=== PATIENT | female | born 1990 | race Caucasian/White ===

== ENCOUNTER 2020-02-18 08:10 | Day surgery (SDC) | payer MEDICAID ==
[~2020-02-18] VITALS: Ht 170.2 cm; Wt 92.3 kg
--- NOTE | ~2020-02-18 | OP ---
PATIENT NAME: SUDHA COLLAZO MEDICAL RECORD: [id number] :90 LOCATION:[facility] ADMISSION DATE: SURGEON: LYDIA CORREA DO DATE OF OPERATION: 02/18/2020 PROCEDURE: EGD with balloon dilation and biopsies. INDICATIONS FOR PROCEDURE: Dysphagia and heartburn. SCOPE: Olympus video gastroscope. MEDICATIONS: Propofol 400 mg IV per anesthesia. ESTIMATED BLOOD LOSS: Minimal. COMPLICATIONS: None. FINDINGS: Informed consent was given. The patient was made comfortable with the above medication. After reaching an adequate level of sedation by slow IV push, the patient was placed on her left side. The endoscope was advanced under direct visualization through the mouth to the second portion of the duodenum with ease. The upper, middle, and lower thirds of the esophagus appeared normal. Cold forceps biopsies were taken from the midesophagus to rule out the presence of eosinophils. At the GE junction, there were minor changes consistent with LA class A reflux-induced esophagitis and mild esophageal stenosis. A CRE dilating balloon was placed through the endoscope and the GE junction was dilated to 20 mm maximum diameter successfully. The endoscope was advanced beyond the GE junction into the stomach and retroflexed to view the cardia and fundus, which appeared normal. The body of the stomach also appeared normal. In the antrum and prepyloric regions, there were minor changes of erythema and granularity consistent with chronic mild gastritis. Cold forceps, biopsies were taken from the antrum and incisura to submit for histopathology and to rule out the presence of H. pylori. The endoscope was advanced beyond the pylorus into the duodenum, which appeared normal to the second portion. The endoscope was then withdrawn from the patient. The patient tolerated the procedure well and there were no complications. IMPRESSION: 1. LA class A reflux-induced esophagitis. 2. Mild esophageal stenosis, status post dilation to 20 mm. 3. Mild chronic gastritis involving the antrum. PLAN AND RECOMMENDATIONS: 1. Discharge home when recovery parameters are met. 2. Follow up biopsy specimen results. 3. GERD diet and reflux precautions. 4. Continue current medications. 5. Omeprazole 40 mg daily times 60 days. 6. Follow up in GI clinic in 4-6 weeks. 7. If dysphagia persist after dilation and while on medications, consider esophageal manometry to rule out dysmotility. TRANSINT:[id number] Voice Confirmation ID: [id number] DOCUMENT ID: [id number] OPERATIVE REPORT [id number] SUDHA COLLAZO NATHAN A DO CC: [id number] DICTATION DATE: 02/18/201104 PYRIDINE OPERATOR: 02/18/20 1200 REG [facility] [address] [id number]
[2020-02-18 08:29] LABS: HEMATOCRIT 40.5 % (36.0-48.0); HEMOGLOBIN 13.1 g/dL (12-16); MCH 28.8 pg (26.0-34.0); MCHC 32.3 g/dL (31.0-37.0); MEAN PLATELET VOLUME 10.2 fL (7.4-10.4); RBC 4.55 10x6/uL (4.00-5.40); RDW 13.5 % (11.5-14.5); WBC 7.7 10x3/uL (4.8-10.8)
[2020-02-18 08:34] LABS: CALC OSMOLALITY 278 mosm/kg (275-300); CALCIUM 9.5 mg/dL (8.5-10.1); CARBON DIOXIDE 25.3 mmol/L (21.0-32.0); CHLORIDE - SERUM 103 mmol/L (98-107); CREATININE - SERUM 0.7 mg/dL (0.6-1.3); GLUCOSE 213 mg/dL (74-106); SODIUM 137 mmol/L (136-145); UREA NITROGEN 11 mg/dL (7-18); eGFR NON AFRICAN AMERICAN > 90 mL/min (90-120)
[2020-02-18 08:48] LABS: HCG SERUM NEGATIVE (NEGATIVE)
[2020-02-18] MEDS ORDERED: LIPITOR10 MG PO (09:05)
[2020-02-18] MEDS ORDERED: GLUCOPHAGE500 MG PO (09:05)
[2020-02-18 09:16] VITALS: BP 111/65; Ht 170.2 cm; Wt 92.3 kg
--- NOTE | 2020-02-18 11:40 | NUR ---
1130-RECD TO ROOM. ALERT. DR CORREA IN TO REPORT FINDINGS. 1140-FULL LIQUIDS SERVED.
--- NOTE | 2020-02-18 12:19 | NUR ---
1115-RECD TO ROOM FROM IR. POST BONE MARROW BX. ALERT. TALKING. IV PATENT. RESP WITH EASE. LOWER BACK DRESSING DRY AND INTACT. 1130-REGULAR LUNCH TRAY SERVED. INFORMED D/C TIME IS 1345.
--- NOTE | 2020-02-18 12:23 | NUR ---
1210-D/C HOME VIA WHEELCHAIR TO MOTHER.
--- NOTE | 2020-02-18 12:45 | NUR ---
1115-SEE FREQUENT VITAL SIGN SHEET FOR VITALS.
== END 2020-02-18 12:10 | disposition home or self-care (01) ==
LOC: D.OPS 08:10
PROVIDERS: Anesthesiology; ATTEND Internal Medicine Gastroenterology
DX: R13.10 Dysphagia, unspecified (principal); R12 Heartburn; K21.0 Gastro-esophageal reflux disease with esophagitis; K22.2 Esophageal obstruction; E11.9 Type 2 diabetes mellitus without complications; Z79.84 Long term (current) use of oral hypoglycemic drugs